=== PATIENT | male | born 1985 | race Caucasian/White ===

== ENCOUNTER 2019-09-18 13:55 | Emergency (ER) | payer OTHER ==
[~2019-09-18] VITALS: Ht 193 cm; Wt 89.8 kg
[2019-09-18 13:59] VITALS: BP 137/93
== END 2019-09-18 16:39 | disposition left against medical advice (07) ==
LOC: ER 13:55
DX: S39.012A Strain of muscle, fascia and tendon of lower back, initial encounter (principal); X50.0XXA Overexertion from strenuous movement or load, initial encounter; Y93.89 Activity, other specified; Y92.89 Other specified places as the place of occurrence of the external cause; Y99.8 Other external cause status
CPT/HCPCS: 72100

== ENCOUNTER 2019-09-20 10:16 | Emergency (ER) | payer OTHER ==
[~2019-09-20] VITALS: Ht 193 cm; Wt 86.2 kg
[2019-09-20 13:00] VITALS: BP 126/72
[2019-09-20] MEDS: KETOROLAC TROMETH 60MG/2ML VIAL IM ONE (13:06)
== END 2019-09-20 13:22 | disposition home or self-care (01) ==
LOC: ER 10:16
DX: S39.012A Strain of muscle, fascia and tendon of lower back, initial encounter (principal); M54.42 Lumbago with sciatica, left side; X50.0XXA Overexertion from strenuous movement or load, initial encounter; Y93.89 Activity, other specified; Y92.89 Other specified places as the place of occurrence of the external cause; Y99.8 Other external cause status
CPT/HCPCS: 96372; 99283; J1885